=== PATIENT | male | born 1945 | race Caucasian/White ===

== ENCOUNTER 2017-02-11 22:17 | Emergency (ER) | payer OTHER ==
[2017-02-11 22:29] VITALS: TEMP 98.2
--- NOTE | 2017-02-11 22:49 | EDPHY ---
H & P Stated Complaint: left flank/back pain Time Seen by Provider: 02/11/17 22:33 HPI/ROS: Chief Complaint: Back pain HPI: 71-year-old male with a history of coronary artery disease and aortic aneurysm had sudden onset of left lower back pain approximately an hour ago. Patient states that he had just gotten up watching television, was walking around with sudden onset of 10/10 pain. No abdominal pain. It did radiate up his back a little bit. Did not radiate into his abdomen. No chest pain or shortness of breath. No numbness or weakness. He did not take any medicine for it. Pain has subsided significantly is down to a 2/10. She has not had any hematuria or urinary frequency urgency. No fevers or chills. No nausea or vomiting. Did have some mild lightheadedness associated with this. No fainting. ROS: 10 point Review of Systems is negative except as noted in the HPI. PMH: Coronary artery disease, aortic aneurysm, chronic headaches Medications: Aspirin, Plavix, lisinopril Allergies: Statins Social History: No smoking, no alcohol, no recreational drug use Family History: non-contributory Physical Exam: Gen: Awake, Alert, No Distress HEENT: Nose: no rhinorrhea Eyes: PERRLA, EOMI Mouth: Moist mucosa Neck: Supple, no JVD Chest: nontender, lungs clear to auscultation Heart: S1, S2 normal, no murmur Abd: Soft, non-tender, no guarding Back: no CVA tenderness, no midline tenderness Ext: no edema, non-tender Skin: no rash Neuro: CN II-XII intact, Sensation grossly intact, Strength 5/5 in bilateral upper and lower extremities - Personal History Tetanus Vaccine Date: < 10 YEARS - Medical/Surgical History Hx Asthma: No Hx Chronic Respiratory Disease: No Hx Diabetes: No Hx Cardiac Disease: No Hx Renal Disease: No Hx Cirrhosis: No Hx Alcoholism: No Hx HIV/AIDS: No Hx Splenectomy or Spleen Trauma: No Other PMH: HERNIA, BACK SURGERY, MILD HYPERLIPIDEMIA, anxiety, BPH,migraines, thoracic aortic aneursym watching- no change - Social History Smoking Status: Never smoked Constitutional: Initial Vital Signs Temperature (C) 36.8 C 02/11/17 22:27 Heart Rate 76 02/11/17 22:27 Respiratory Rate 18 02/11/17 22:27 Blood Pressure 182/87 H 02/11/17 22:27 O2 Sat (%) 93 02/11/17 22:27 O2 Delivery Mode Room Air Allergies/Adverse Reactions: LIPITOR Allergy (Unknown, Uncoded 07/20/10 14:02) Home Medications: Medication Instructions Recorded LORazepam [Ativan (*)] 0.5 - 1 mg PO HS PRN 07/20/10 Ezetimibe [Zetia 10 MG (*)] 10 mg PO DAILY 07/31/16 Aspirin EC [Aspirin EC 81 mg (*)] 81 mg PO DAILY #0 tab 08/01/16 Lisinopril [Zestril 2.5 mg (*)] 2.5 mg PO DAILY #30 tab 08/01/16 Pravastatin Sodium 10 mg PO Q2D #15 tablet 08/01/16 Ticagrelor [Brilinta] 90 mg PO BID #60 tab 08/01/16 Plavix 02/11/17 Medical Decision Making - Diagnostics Imaging Results: 2 mm calculus in the bladder consistent with a passed stone, small amount of hydro on the left suggesting a recently passed stone. Interpreted by Dr. Salas. Imaging: Discussed imaging studies w/ political organizer Radiologist ED Course/Re-evaluation: CT scan shows a 2 mm stone in the bladder. There is no signs of infection and urinalysis. Symptoms are consistent with a passed stone. Will discharge with follow up with primary care physician. - Data Points Laboratory Results: Laboratory Results 02/11/17 22:35 02/11/17 22:35 02/11/17 02/11/17 02/11/17 23:20 22:35 22:35 WBC 8.96 10^3/uL 10^3/uL (3.80-9.50) RBC 5.41 10^6/uL 10^6/uL (4.40-6.38) Hgb 16.8 g/dL g/dL (13.7-17.5) Hct 47.9 % % (40.0-51.0) MCV 88.5 fL fL (81.5-99.8) MCH 31.1 pg pg (27.9-34.1) MCHC 35.1 g/dL g/dL (32.4-36.7) RDW 11.9 % % (11.5-15.2) Plt Count 248 10^3/uL 10^3/uL (150-400) MPV 10.4 fL fL (8.7-11.7) Neut % (Auto) 68.6 % % (39.3-74.2) Lymph % (Auto) 19.3 % % (15.0-45.0) [place] % (Auto) 8.1 % % (4.5-13.0) Eos % (Auto) 3.1 % % (0.6-7.6) Baso % (Auto) 0.8 % % (0.3-1.7) Nucleat RBC Rel Count 0.0 % % (0.0-0.2) Absolute Neuts (auto) 6.14 10^3/uL 10^3/uL (1.70-6.50) Absolute Lymphs (auto) 1.73 10^3/uL 10^3/uL (1.00-3.00) Absolute Monos (auto) 0.73 10^3/uL 10^3/uL (0.30-0.80) Absolute Eos (auto) 0.28 10^3/uL 10^3/uL (0.03-0.40) Absolute Basos (auto) 0.07 10^3/uL 10^3/uL (0.02-0.10) Absolute Nucleated RBC 0.00 10^3/uL 10^3/uL (0-0.01) Immature Gran % 0.1 % % (0.0-1.1) Immature Gran # 0.01 10^3/uL 10^3/uL (0.00-0.10) Sodium 135 mEq/L mEq/L (134-144) Potassium 3.9 mEq/L mEq/L (3.5-5.2) Chloride 98 mEq/L mEq/L (97-110) Carbon Dioxide 26 mEq/l mEq/l (22-31) Anion Gap 11 mEq/L mEq/L (8-16) BUN 28 mg/dL H mg/dL (7-23) Creatinine 1.1 mg/dL mg/dL (0.7-1.3) Estimated GFR > 60 Glucose 118 mg/dL H mg/dL (70-100) Calcium 9.5 mg/dL mg/dL (8.5-10.4) Urine Color YELLOW Urine Appearance CLEAR Urine pH 6.0 (5.0-7.5) Ur Specific [place] 1.015 (1.002-1.030) Urine Protein NEGATIVE (NEGATIVE) Urine Ketones NEGATIVE (NEGATIVE) Urine Blood 3+ H (NEGATIVE) Urine Nitrate NEGATIVE (NEGATIVE) Urine Bilirubin NEGATIVE (NEGATIVE) Urine Urobilinogen NEGATIVE EU EU (0.2-1.0) Ur Leukocyte Esterase NEGATIVE (NEGATIVE) Urine RBC 50-182 /hpf H /hpf (0-3) Urine WBC 1-3 /hpf /hpf (0-3) Ur Epithelial Cells Not Reported Urine Glucose NEGATIVE (NEGATIVE) Departure - Departure Disposition: Home, Routine, Self-Care Clinical Impression: Renal colic on left side Condition: Good Instructions: Kidney Stones (ED) Additional Instructions: Follow up with primary care physician in 3-4 days for re-evaluation. Return to the emergency department increasing pain, fevers, chills, numbness, weakness, or any other concerns. Referrals: Patient,NotPresent [Unknown] - As per Instructions Albin Martinez MD [Primary Care Provider] - As per Instructions
[2017-02-11 22:55] LABS: % IMMATURE GRANULYOCYTES 0.1 % (0.0-1.1); ABSOLUTE IMMATURE GRANULOCYTES 0.01 10^3/uL (0.00-0.10); ADD DIFF? NO; ADD MORPH? NO; ADD SCAN? NO; ATYPICAL LYMPHOCYTE FLAG 0 (0-99); FRAGMENT RBC FLAG 0 (0-99); HEMATOCRIT 47.9 % (40.0-51.0); HEMOGLOBIN 16.8 g/dL (13.7-17.5); LEFT SHIFT FLG 0 (0-99); LIPEMIA HEMOLYSIS FLAG 90 (0-99); MEAN CELL HEMOGLOBIN 31.1 pg (27.9-34.1); MEAN CELL HEMOGLOBIN CONCENTR. 35.1 g/dL (32.4-36.7); MEAN CELL VOLUME 88.5 fL (81.5-99.8); MEAN PLATELET VOLUME 10.4 fL (8.7-11.7); PLATELET CLUMPS FLAG 10 (0-99); PLATELET COUNT 248 10^3/uL (150-400); RED BLOOD CELL COUNT 5.41 10^6/uL (4.40-6.38); RED CELL DISTRIBUTION WIDTH 11.9 % (11.5-15.2)
[2017-02-11 23:01] LABS: ANION GAP 11 mEq/L (8-16); CALCIUM 9.5 mg/dL (8.5-10.4); CARBON DIOXIDE 26 mEq/l (22-31); CHLORIDE 98 mEq/L (97-110); CREATININE 1.1 mg/dL (0.7-1.3); GLOMERULAR FILTRATION RATE > 60; GLUCOSE 118 mg/dL (70-100); POTASSIUM 3.9 mEq/L (3.5-5.2); SODIUM 135 mEq/L (134-144)
[2017-02-11 23:31] LABS: COLOR YELLOW; LEUKOCYTE ESTERASE,URINE NEGATIVE (NEGATIVE); NITRITE,URINE NEGATIVE (NEGATIVE)
[2017-02-11 23:37] LABS: RBC,URINE 50-182 /hpf (0-3)
[2017-02-12 00:54] VITALS: O2SAT 94
[2017-02-12 00:55] VITALS: BP 129/83; PULSE 72; RESP 16
== END 2017-02-12 00:56 | disposition home or self-care (01) ==
LOC: EDUNIT#
DX: N23 Unspecified renal colic (principal); I25.10 Atherosclerotic heart disease of native coronary artery without angina pectoris; Z79.82 Long term (current) use of aspirin

== ENCOUNTER 2017-02-16 15:42 | Observation (INO) | payer OTHER ==
[2017-02-16] MEDS ORDERED: ONDANSETRON 4 MG/2 ML VIAL IVP ONE (17:43)
[2017-02-16] MEDS ORDERED: ASPIRIN 81 MG CHEWABLE TAB PO ONE (17:43)
--- NOTE | 2017-02-16 17:56 | CPEKG ---
Heart Rate: 66 RR Interval: 909 P-R Interval: 200 QRSD Interval: 110 QT Interval: 416 QTC Interval: 436 P [place]: 38 QRS [place]: 30 T Wave [place]: 39 EKG Severity - ABNORMAL ECG - EKG Impression: SINUS RHYTHM EKG Impression: NONSPECIFIC INTRAVENTRICULAR CONDUCTION DELAY EKG Impression: Unchanged from previous Electronically Signed By: Chi Damian 16-Feb-2017 18:00:33
--- NOTE | 2017-02-16 18:00 | EDPHY ---
H & P Stated Complaint: l kidney stone/seen tues/feeling weak Time Seen by Provider: 02/16/17 17:22 HPI/ROS: CHIEF COMPLAINT: Generalized weakness HISTORY OF PRESENT ILLNESS: The patient is a 71-year-old man who presents to the emergency department with his complaining of generalized fatigue and weakness for the last 2 days. He was here 1 week ago and found to have passed a 2 mm kidney stone. He states that he recovered well from this but began feeling intermittently fatigued over the last 2 days. He denies fevers. He denies flu-like or upper respiratory tract infections. He denies cough shortness of breath. He denies abdominal pain. He denies diarrhea. He does have mild nausea. After arriving in the emergency department he states that he had chills and then developed mild left-sided chest pain that radiates down his left arm. He denies focal weakness or numbness. No bowel or bladder abnormalities. No dysuria. No back pain or flank pain. He does have an aortic arch aneurysm that has been monitored without intervention. REVIEW OF SYSTEMS: Constitutional: See HPI EENTM: denies: blurred vision, double vision, nose congestion Respiratory: denies: cough, shortness of breath Cardiac: denies: chest pain, irregular heart rate, lightheadedness, palpitations Gastrointestinal/Abdominal: denies: abdominal pain, diarrhea, nausea, vomiting, blood streaked stools Genitourinary: denies: dysuria, frequency, hematuria, pain Musculoskeletal: denies: joint pain, muscle pain Skin: denies: lesions, rash, jaundice, bruising Neurological: denies: headache, numbness, paresthesia, tingling, dizziness, weakness Hematologic/Lymphatic: denies: blood clots, easy bleeding, easy bruising Immunologic/allergic: denies: HIV/AIDS, transplant EXAM: GENERAL: Well-appearing, well-nourished and in no acute distress. HEAD: Atraumatic, normocephalic. EYES: Pupils equal round and reactive to light, extraocular movements intact, sclera anicteric, conjunctiva are normal. ENT: TMs normal, nares patent, oropharynx clear without exudates. Moist mucous membranes. NECK: Normal range of motion, supple without lymphadenopathy or JVD. LUNGS: Breath sounds clear to auscultation bilaterally and equal. No wheezes rales or rhonchi. HEART: Regular rate and rhythm without murmurs, rubs or gallops. ABDOMEN: Soft, nontender, normoactive bowel sounds. No guarding, no rebound. No masses appreciated. BACK: No CVA tenderness, no spinal tenderness, step-offs or deformities EXTREMITIES: Normal range of motion, no pitting or edema. No clubbing or cyanosis. NEUROLOGICAL: Cranial nerves II through XII grossly intact. Normal speech, normal gait. 5/5 strength, normal movement in all extremities, normal sensation PSYCH: Normal mood, normal affect. SKIN: Warm, dry, normal turgor, no visible rashes or lesions. Source: Patient Exam Limitations: No limitations - Personal History Current Tetanus/Diphtheria Vaccine: Yes Tetanus Vaccine Date: < 10 YEARS - Medical/Surgical History Hx Asthma: No Hx Chronic Respiratory Disease: No Hx Diabetes: No Hx Cardiac Disease: Yes Hx Renal Disease: No Hx Cirrhosis: No Hx Alcoholism: No Hx HIV/AIDS: No Hx Splenectomy or Spleen Trauma: No Other PMH: HERNIA, BACK SURGERY, MILD HYPERLIPIDEMIA, anxiety, BPH,migraines, thoracic aortic aneursym watching- no change cardiac stent - Family History Significant Family History: No pertinent family hx - Social History Smoking Status: Never smoked Alcohol Use: Sober Drug Use: None (ATERSEMP@2ATERSEMP@2) Constitutional: Initial Vital Signs Temperature (C) 36.5 C 02/16/17 16:05 Heart Rate 61 02/16/17 16:05 Respiratory Rate 18 02/16/17 16:05 Blood Pressure 148/83 H 02/16/17 16:05 O2 Sat (%) 95 02/16/17 16:05 O2 Delivery Mode Room Air Allergies/Adverse Reactions: LIPITOR Allergy (Unknown, Uncoded 02/16/17 16:04) Home Medications: Medication Instructions Recorded LORazepam [Ativan (*)] 0.5 - 1 mg PO HS PRN 07/20/10 Aspirin EC [Aspirin EC 81 mg (*)] 81 mg PO DAILY #0 tab 08/01/16 Lisinopril [Zestril 2.5 mg (*)] 2.5 mg PO DAILY #30 tab 08/01/16 Plavix 02/11/17 Medical Decision Making - Diagnostics EKG Interpretation: An EKG obtained and was read and documented in trace view. Please see trace view for full reading and report. Sinus rhythm, unchanged from previous - Data Points Laboratory Results: Laboratory Results 02/16/17 17:50 02/16/17 17:50 02/16/17 02/16/17 02/16/17 17:50 17:50 17:50 WBC RBC Hgb Hct MCV MCH MCHC RDW Plt Count MPV Neut % (Auto) Lymph % (Auto) [place] % (Auto) Eos % (Auto) Baso % (Auto) Nucleat RBC Rel Count Absolute Neuts (auto) Absolute Lymphs (auto) Absolute Monos (auto) Absolute Eos (auto) Absolute Basos (auto) Absolute Nucleated RBC Immature Gran % Immature Gran # PT 12.7 SEC SEC (12.0-15.0) INR 0.96 (0.83-1.16) APTT 26.7 SEC SEC (23.0-38.0) Sodium 140 mEq/L mEq/L (134-144) Potassium 4.2 mEq/L mEq/L (3.5-5.2) Chloride 101 mEq/L mEq/L (97-110) Carbon Dioxide 28 mEq/l mEq/l (22-31) Anion Gap 11 mEq/L mEq/L (8-16) BUN 19 mg/dL mg/dL (7-23) Creatinine 1.0 mg/dL mg/dL (0.7-1.3) Estimated GFR > 60 Glucose 90 mg/dL mg/dL (70-100) Calcium 9.9 mg/dL mg/dL (8.5-10.4) Troponin I < 0.012 ng/mL ng/mL (0-0.034) Urine Color YELLOW Urine Appearance CLEAR Urine pH 5.0 (5.0-7.5) Ur Specific [place] 1.009 (1.002-1.030) Urine Protein NEGATIVE (NEGATIVE) Urine Ketones NEGATIVE (NEGATIVE) Urine Blood NEGATIVE (NEGATIVE) Urine Nitrate NEGATIVE (NEGATIVE) Urine Bilirubin NEGATIVE (NEGATIVE) Urine Urobilinogen NEGATIVE EU EU (0.2-1.0) Ur Leukocyte Esterase NEGATIVE (NEGATIVE) Urine RBC 1-3 /hpf /hpf (0-3) Urine WBC 1-3 /hpf /hpf (0-3) Ur Epithelial Cells NONE SEEN /lpf /lpf (NONE-1+) Urine Mucus TRACE /lpf /lpf (NONE-1+) Urine Glucose NEGATIVE (NEGATIVE) 02/16/17 17:50 WBC 10.37 10^3/uL H 10^3/uL (3.80-9.50) RBC 5.64 10^6/uL 10^6/uL (4.40-6.38) Hgb 17.6 g/dL H g/dL (13.7-17.5) Hct 50.5 % % (40.0-51.0) MCV 89.5 fL fL (81.5-99.8) MCH 31.2 pg pg (27.9-34.1) MCHC 34.9 g/dL g/dL (32.4-36.7) RDW 12.0 % % (11.5-15.2) Plt Count 262 10^3/uL 10^3/uL (150-400) MPV 10.2 fL fL (8.7-11.7) Neut % (Auto) 71.8 % % (39.3-74.2) Lymph % (Auto) 18.3 % % (15.0-45.0) [place] % (Auto) 7.4 % % (4.5-13.0) Eos % (Auto) 1.7 % % (0.6-7.6) Baso % (Auto) 0.5 % % (0.3-1.7) Nucleat RBC Rel Count 0.0 % % (0.0-0.2) Absolute Neuts (auto) 7.44 10^3/uL H 10^3/uL (1.70-6.50) Absolute Lymphs (auto) 1.90 10^3/uL 10^3/uL (1.00-3.00) Absolute Monos (auto) 0.77 10^3/uL 10^3/uL (0.30-0.80) Absolute Eos (auto) 0.18 10^3/uL 10^3/uL (0.03-0.40) Absolute Basos (auto) 0.05 10^3/uL 10^3/uL (0.02-0.10) Absolute Nucleated RBC 0.00 10^3/uL 10^3/uL (0-0.01) Immature Gran % 0.3 % % (0.0-1.1) Immature Gran # 0.03 10^3/uL 10^3/uL (0.00-0.10) PT INR APTT Sodium Potassium Chloride Carbon Dioxide Anion Gap BUN Creatinine Estimated GFR Glucose Calcium Troponin I Urine Color Urine Appearance Urine pH Ur Specific [place] Urine Protein Urine Ketones Urine Blood Urine Nitrate Urine Bilirubin Urine Urobilinogen Ur Leukocyte Esterase Urine RBC Urine WBC Ur Epithelial Cells Urine Mucus Urine Glucose Medications Given: Discontinued Medications Aspirin (Aspirin) 324 mg PO EDNOW ONE Stop: 02/16/17 17:44 Last Admin: 02/16/17 18:43 Dose: Not Given Ondansetron HCl (Zofran) 4 mg IVP EDNOW ONE Stop: 02/16/17 17:44 Last Admin: 02/16/17 18:07 Dose: Not Given Departure - Departure Disposition: [facility] Acute Clinical Impression: Generalized weakness Chest pain Qualifiers: Chest pain type: unspecified Qualified Code(s): R07.9 - Chest pain, unspecified Condition: Fair Referrals: Albin Martinez MD [Primary Care Provider] - As per Instructions
[2017-02-16 18:07] LABS: % IMMATURE GRANULYOCYTES 0.3 % (0.0-1.1); ABSOLUTE IMMATURE GRANULOCYTES 0.03 10^3/uL (0.00-0.10); ADD DIFF? NO; ADD MORPH? NO; ADD SCAN? NO; ATYPICAL LYMPHOCYTE FLAG 0 (0-99); FRAGMENT RBC FLAG 0 (0-99); HEMATOCRIT 50.5 % (40.0-51.0); HEMOGLOBIN 17.6 g/dL (13.7-17.5); LEFT SHIFT FLG 0 (0-99); LIPEMIA HEMOLYSIS FLAG 90 (0-99); MEAN CELL HEMOGLOBIN 31.2 pg (27.9-34.1); MEAN CELL HEMOGLOBIN CONCENTR. 34.9 g/dL (32.4-36.7); MEAN CELL VOLUME 89.5 fL (81.5-99.8); MEAN PLATELET VOLUME 10.2 fL (8.7-11.7); PLATELET CLUMPS FLAG 10 (0-99); PLATELET COUNT 262 10^3/uL (150-400); RED BLOOD CELL COUNT 5.64 10^6/uL (4.40-6.38)
[2017-02-16 18:13] LABS: COLOR YELLOW; LEUKOCYTE ESTERASE,URINE NEGATIVE (NEGATIVE); NITRITE,URINE NEGATIVE (NEGATIVE)
[2017-02-16 18:14] LABS: MUCUS TRACE /lpf (NONE-1+)
[2017-02-16 18:22] LABS: APTT 26.7 SEC (23.0-38.0); INR 0.96 (0.83-1.16); PROTIME(PATIENT) 12.7 SEC (12.0-15.0)
[2017-02-16 18:27] LABS: ANION GAP 11 mEq/L (8-16); CALCIUM 9.9 mg/dL (8.5-10.4); CARBON DIOXIDE 28 mEq/l (22-31); CHLORIDE 101 mEq/L (97-110); GLOMERULAR FILTRATION RATE > 60; GLUCOSE 90 mg/dL (70-100); POTASSIUM 4.2 mEq/L (3.5-5.2); SODIUM 140 mEq/L (134-144)
[2017-02-16 18:38] LABS: TROPONIN I < 0.012 ng/mL (0-0.034)
[2017-02-16 18:48] VITALS: RESP 16
[2017-02-16] MEDS ORDERED: ACETAMINOPHEN 325 MG TAB PO PRN (19:36)
[2017-02-16] MEDS ORDERED: ONDANSETRON 4 MG/2 ML VIAL IVP PRN (19:36)
[2017-02-16] MEDS ORDERED: ONDANSETRON DISINTEGRATING 4 MG TAB PO PRN (19:36)
--- NOTE | 2017-02-16 19:57 | GHP ---
[f rep st] HISTORY AND PHYSICAL DATE OF ADMISSION: 02/16/2017 CHIEF COMPLAINT: Generalized weakness. HISTORY OF PRESENT ILLNESS: This is a 71-year-old male with a history of coronary artery disease an d recently diagnosed kidney stones last week, who presents to the emergency department with generali zed weakness. He denies any fevers, but has had some chills. He denies any sweats. His appetite h as been normal. He denies any urinary complaints. He denies any flank pain. He denies any chest p ain or shortness of breath. He denies any congestion. He has had some nausea. He saw his PCP on [place] for a followup of his kidney stones, where he told him about some stomach upset he was having and was started on some Zantac, which he thinks maybe made him feel worse. PAST MEDICAL HISTORY: 1. Coronary artery disease status post stent placement. 2. BPH. 3. Anxiety. 4. Kidney stones. 5. Hyperlipidemia. 6. Migraines. 7. Stable 4.2 cm thoracic aortic aneurysm. PAST SURGICAL HISTORY: Cervical fusion, hernia repair. HOME MEDICATIONS: Reviewed. Refer to [facility] for details. ALLERGIES: Lipitor. SOCIAL HISTORY: He is . He denies any alcohol, tobacco, or illicit drug use. FAMILY HISTORY: Reviewed and noncontributory. REVIEW OF SYSTEMS: A comprehensive 10-point review of systems was done and is negative, except for as mentioned in the HPI. PHYSICAL EXAM: VITAL SIGNS: Blood pressure 150/85, pulse 66, respiratory rate 16, O2 saturation 93 % on room air, temperature afebrile. GENERAL: In no acute distress. HEENT: Head normocephalic, a traumatic. Eyes are PERRLA. Sclerae are anicteric. Mouth: Moist mucous membranes. NECK: Supple . No lymphadenopathy. CARDIOVASCULAR: S1, S2. No murmurs, rubs, clicks, gallops, or JVD. No low er extremity edema. PULMONARY: Lungs are clear. No wheezes, rales, or rhonchi. ABDOMEN: Soft, n ontender, nondistended. No guarding or rebound tenderness. Normoactive bowel sounds. EXTREMITIES: No clubbing or cyanosis. NEURO: Face is symmetric. Cranial nerves II through XII are grossly in tact. No focal motor or sensory deficits. SKIN: Clear. No rashes. DIAGNOSTICS: WBC is 10.37, hemoglobin 17.6, hematocrit 50.5, platelets 262. INR 0.96. Sodium 140, potassium 4.2, chloride 101, CO2 28, BUN 19, creatinine 1, glucose 90. Troponin is negative. UA u nremarkable. EKG, which I visualized and personally interpreted, shows sinus rhythm, rate 66 beats per minute, no acute ischemic changes. Chest x-ray: The final read is pending. Preliminary read done by myself shows a normal heart size, no obvious effusions or pneumonia. ASSESSMENT AND PLAN: 1. This is a 71-year-old male with recent kidney stones that have reportedly passed presenting with generalized weakness without any real localizing symptoms, but with a slightly elevated white blood cell count. Plan: I discussed options with the patient and his who feel most comfortable wit h further observation in the hospital. The patient will be closely monitored for signs and symptoms of infection. 2. History of thoracic aneurysm that was reportedly stable in July of 2016. Plan: Will defer any further monitoring to the outpatient setting since I do not think that this is contributing to t he patient's current presentation. /[id number]/MODL
[2017-02-16 20:00] VITALS: O2SAT 95
[2017-02-16] MEDS ORDERED: LISINOPRIL 2.5 MG TAB PO SCH (21:00)
[2017-02-16] MEDS: LORazepam 1 MG TAB PO PRN (21:12)
[2017-02-17] MEDS: LORazepam 1 MG TAB PO PRN (02:41)
[2017-02-17 07:45] VITALS: BP 111/72; PULSE 60; TEMP 98.6
[2017-02-17] MEDS ORDERED: ASPIRIN EC 81 MG TAB PO SCH (09:00)
[2017-02-17] MEDS ORDERED: CLOPIDOGREL BISULFATE 75 MG TAB PO SCH (09:00)
[2017-02-17 09:38] LABS: % IMMATURE GRANULYOCYTES 0.3 % (0.0-1.1); ABSOLUTE IMMATURE GRANULOCYTES 0.02 10^3/uL (0.00-0.10); ADD DIFF? NO; ADD MORPH? NO; ADD SCAN? NO; ATYPICAL LYMPHOCYTE FLAG 0 (0-99); FRAGMENT RBC FLAG 0 (0-99); HEMATOCRIT 44.6 % (40.0-51.0); HEMOGLOBIN 15.4 g/dL (13.7-17.5); LEFT SHIFT FLG 0 (0-99); LIPEMIA HEMOLYSIS FLAG 90 (0-99); MEAN CELL HEMOGLOBIN 31.2 pg (27.9-34.1); MEAN CELL HEMOGLOBIN CONCENTR. 34.5 g/dL (32.4-36.7); MEAN CELL VOLUME 90.3 fL (81.5-99.8); MEAN PLATELET VOLUME 10.5 fL (8.7-11.7); PLATELET CLUMPS FLAG 10 (0-99); PLATELET COUNT 231 10^3/uL (150-400); RED BLOOD CELL COUNT 4.94 10^6/uL (4.40-6.38); RED CELL DISTRIBUTION WIDTH 12.2 % (11.5-15.2)
--- NOTE | 2017-02-17 16:15 | GDS ---
[f rep st] DISCHARGE SUMMARY DISCHARGE DIAGNOSES: 1. Generalized weakness. 2. Nausea. 3. Nephrolithiasis. 4. History of thoracic aortic aneurysm, stable. HISTORY: For details, please see dictated history and physical dated February 16, 2017. In brief, the denisse morrison is a 71-year-old male with a history of coronary artery disease with an LAD stent who was rec ently diagnosed with kidney stones who presents to the emergency department with generalized weaknes s. He was admitted to the hospital for further evaluation. HOSPITAL COURSE: The patient was admitted to the medical-surgical unit. I reviewed his prior imagi ng which showed just a small stone in the renal parenchyma, but no ureteral stones. His white count normalized. He had no localizing symptoms of an infectious process. His troponin was negative x2. TSH was normal. H pylori was negative. His urinalysis was negative for any blood or suggestion o f infection. Urine culture is showing no growth to date at 24 hours. He has remained afebrile. He is ambulating independently on the day of discharge with stable vital signs. He does report some w eight loss and ongoing nausea. Recommend he follow up with his primary care physician and if his na usea and weight loss persist, he may consider referral to Gastroenterology for possible EGD. I do n ot think his symptoms are related to his kidney stones. I am not sure if further evaluation of his testosterone status would be helpful, but I discussed this with him, and he may talk to his primary care doctor about this. DISPOSITION: Patient is discharged home in stable condition. DISCHARGE MEDICATIONS: Please see [facility] for complete updated outpatient medication list. There are no new medications on discharge. FOLLOWUP: Patient is to have close followup with his primary care physician, Dr. Albin Martinez. /[id number]/MODL
== END 2017-02-17 12:51 | disposition home or self-care (01) ==
LOC: F1N 20:00
PROVIDERS: ADMIT Family Medicine; ATTEND Family Medicine
DX: R53.1 Weakness (principal); N20.0 Calculus of kidney; I71.2 Thoracic aortic aneurysm, without rupture; I25.10 Atherosclerotic heart disease of native coronary artery without angina pectoris; Z95.5 Presence of coronary angioplasty implant and graft; E78.5 Hyperlipidemia, unspecified; Z98.1 Arthrodesis status; N40.0 Benign prostatic hyperplasia without lower urinary tract symptoms
CPT/HCPCS: 71020; 93005; G0378; J2405

== ENCOUNTER → 2017-03-27 | Outpatient (CLI) | payer OTHER ==
--- NOTE | 2017-03-31 13:37 | CPEEG ---
[f rep st] ELECTROENCEPHALOGRAM DATE OF STUDY: 03/27/2017 DATE OF INTERPRETATION: 03/31/2017. INTERPRETATION: Normal EEG during wakefulness and partial sleep. There were no potentially epilept ogenic abnormalities present during the recording. REPORT: This EEG contains 10-11 Hz alpha activity of the posterior head regions. There was no abno rmal activation at rest, during photic stimulation or hyperventilation. The patient became drowsy a nd fell asleep briefly during the study. There was no abnormal activation during drowsiness, sleep, or during times of arousal. /[id number]/MODL
== END ==
LOC: FCPNEURO 14:23
PROVIDERS: ATTEND Psychiatry & Neurology Neurology
DX: R29.818 Other symptoms and signs involving the nervous system (principal); R42 Dizziness and giddiness

== ENCOUNTER → 2017-03-31 | Outpatient (CLI) | payer OTHER ==
[~2017-03-31] MED LIST: GADOBUTROL 10 ML VIAL IVP ONE; IOPAMIDOL (ISOVUE 370) 100 ML BTL IV ONE
[2017-03-31 09:44] LABS: GLOMERULAR FILTRATION RATE > 60
== END ==
LOC: FIMAGING 08:49
PROVIDERS: ATTEND Psychiatry & Neurology Neurology
DX: R29.818 Other symptoms and signs involving the nervous system (principal); R20.0 Anesthesia of skin; E23.6 Other disorders of pituitary gland; I65.02 Occlusion and stenosis of left vertebral artery; I70.8 Atherosclerosis of other arteries
CPT/HCPCS: 70496; 70498; 70553; A9585; Q9967

== ENCOUNTER → 2017-04-01 | Outpatient (CLI) | payer OTHER | LOC: BHFA 14:00 | PROVIDERS: ATTEND Internal Medicine Cardiovascular Disease | DX: I25.10 Atherosclerotic heart disease of native coronary artery without angina pectoris (principal) ==

== ENCOUNTER → 2017-11-25 | Outpatient (CLI) | payer OTHER | LOC: FIMAGING 09:44 | PROVIDERS: ATTEND Physician Assistant | DX: R11.0 Nausea (principal); K76.0 Fatty (change of) liver, not elsewhere classified; K76.89 Other specified diseases of liver ==

== ENCOUNTER → 2018-01-23 | Outpatient (CLI) | payer OTHER | LOC: FIMAGING 08:14 | PROVIDERS: ATTEND Physician Assistant | DX: K82.8 Other specified diseases of gallbladder (principal) | CPT/HCPCS: 78227; A9537 ==

== ENCOUNTER → 2018-03-23 | Outpatient (CLI) | payer OTHER ==
[~2018-03-23] MED LIST changes: -GADOBUTROL 10 ML VIAL IVP ONE
== END ==
LOC: FIMAGING 10:40
PROVIDERS: ATTEND Psychiatry & Neurology Neurology
DX: I65.02 Occlusion and stenosis of left vertebral artery (principal); I65.23 Occlusion and stenosis of bilateral carotid arteries; I77.1 Stricture of artery; E23.6 Other disorders of pituitary gland
CPT/HCPCS: 70498; Q9967; 82565-PO

== ENCOUNTER → 2018-07-20 | Outpatient (CLI) | payer OTHER | LOC: BHFA 10:30 | PROVIDERS: ATTEND Internal Medicine Cardiovascular Disease | DX: I25.10 Atherosclerotic heart disease of native coronary artery without angina pectoris (principal); I10 Essential (primary) hypertension; I71.2 Thoracic aortic aneurysm, without rupture ==

== ENCOUNTER → 2019-03-02 | Outpatient (CLI) | payer OTHER | LOC: FIMAGING 12:30 ==